=== PATIENT | male | born 1980 | race Caucasian/White ===

== ENCOUNTER 2017-05-30 03:22 | Emergency (ER) | payer OTHER ==
[~2017-05-30] VITALS: Ht 175.3 cm; Wt 86.2 kg
[~2017-05-30 03:22] MED LIST: IBUPROFEN 800800 MG PO; PROCTOFOAM15 GM TP
[2017-05-30 03:25] VITALS: BP 147/95
[2017-05-30] MEDS ORDERED: AUGMENTIN 875-1 EACH PO (03:52)
[2017-05-30] MEDS ORDERED: CIPRODEX OTIC7.5 ML OTIC (03:52)
[2017-05-30] MEDS ORDERED: PERCOCET 7.5-31 EACH PO (03:52)
== END 2017-05-30 03:59 | disposition home or self-care (01) ==
LOC: M.ERS 03:22
DX: H66.92 Otitis media, unspecified, left ear (principal); F10.99 Alcohol use, unspecified with unspecified alcohol-induced disorder

== ENCOUNTER 2018-11-13 14:21 | Emergency (ER) | payer OTHER ==
[~2018-11-13] VITALS: Ht 175.3 cm; Wt 104.3 kg
[~2018-11-13 14:21] MED LIST changes: +AUGMENTIN 875-1 EACH PO; +CIPRODEX OTIC7.5 ML OTIC; +PERCOCET 7.5-31 EACH PO
--- NOTE | 2018-11-13 17:10 | EKG ---
[place] [address] ELECTROCARDIOGRAM REPORT Name: ARACELI GREENE Room: [facility].#: [id number] Admission: 11/13/18 Attend Phys: Discharge: Date of : 80 Report #: [id number] THIS REPORT FOR: //name// [facility] ED Test Date: 2018-11-13 Test Time: 14:27:26 Pat Name: ARACELI GREENE Department: Room: Gender: Application Security Consultant: [place] : 1980 Requested By: Carrie Poole Order Number: [id number] Reading MD: Anthony Mancilla Measurements Intervals [place] Rate: 133 P: 40 NH: 138 QRS: 16 QRSD: 85 T: 38 QT: 289 QTc: 430 Interpretive Statements Sinus tachycardia RSR' in V1 or V2, probably normal variant Minimal ST depression, lateral leads No previous ECG available for comparison Electronically Signed On 11-13-2018 17:10:19 CDT by Anthony Mancilla [email or web address] <ELECTRONICALLY SIGNED> By: Anthony Mancilla MD, [facility] 11/13/18 1710 1427 1427 Anthony Mancilla MD, [facility] /EPI
== END 2018-11-13 14:58 | disposition left against medical advice (07) ==
LOC: M.ERS 14:21
DX: R07.89 Other chest pain (principal)